=== PATIENT | female | born 1960 | race Caucasian/White ===

== ENCOUNTER → 2017-07-07 14:22 | Outpatient (CLI) | payer OTHER, SELFPAY ==
[2017-07-07 16:11] LABS: Anion Gap 10 (5-15); BUN 8 mg/dL (7-18); BUN/Creat Ratio 9.8 RATIO (10-20); Calcium,Total 9.1 mg/dL (8.5-10.1); Chloride 106 mmol/L (98-107); Cholesterol 286 mg/dL (200); Creatinine, Serum 0.82 mg/dL (0.55-1.02); EST Glomerular Filtration Rate 77 mL/min (>60); Est Glom Filt Rate - Afr Amer 93 mL/min (>60); Glucose 84 mg/dL (74-106); High Density Lipoprotein 93 mg/dL; Potassium 3.8 mmol/L (3.5-5.1); Sodium Level 142 mmol/L (136-145); Thyroid Stim Hormone (TSH) 0.92 uIU/mL (0.358-3.74); Triglycerides 83 mg/dL; Very Low Density Lipoprotein 17 mg/dL (5-40)
== END ==
PROVIDERS: Family Provider Family Medicine; PCP Family Medicine; Visit Provider Family Medicine
DX: Z00.00 Encounter for general adult medical examination without abnormal findings (principal)
CPT/HCPCS: 36415; 80048; 80061; 84443

== ENCOUNTER → 2017-07-10 08:47 | Outpatient (CLI) | payer OTHER, SELFPAY ==
[2017-07-10 10:25] LABS: Cholesterol 296 mg/dL (200); High Density Lipoprotein 102 mg/dL; Triglycerides 53 mg/dL; Very Low Density Lipoprotein 11 mg/dL (5-40)
== END ==
PROVIDERS: Family Provider Family Medicine; PCP Family Medicine; Visit Provider Family Medicine
DX: E78.5 Hyperlipidemia, unspecified (principal)
CPT/HCPCS: 36415; 80061

== ENCOUNTER → 2017-08-11 15:49 | Outpatient (CLI) | payer OTHER, SELFPAY ==
--- NOTE | 2017-08-11 15:49 | DT_ITS ---
This patient was seen during an EMR downtime August 04, 2017 - August 11, 2017. This patient may have a combination of paper and electronic documentation or all paper documentation. All documentation is viewable within the e-chart portion of [facility] for each patient visit.
--- NOTE | 2017-08-11 15:50 | BI_ITS ---
MAMMOGRAPHY - BILATERAL SCREENING REASON FOR EXAM: Female, 56 years old. Routine annual screening examination. PERTINENT HISTORY: NO FAM HX NO SX RT BUMP UNDER SKIN FROM SEBACEOUS CYST REMOVAL/LANCED 1984-MARKED TOLERATED MINIMAL COMPRESSION TECHNIQUE: Digital bilateral breast magdiel (3D mammographic acquisition) in the CC and MLO projections. 2-D mediolateral oblique (MLO) and craniocaudad (CC) views of both breasts were obtained. CAD: Full Field Digital Mammography with Computer Added Detection was performed. COMPARISON: None. FINDINGS: Breast Composition: The breasts are heterogeneously dense, which may obscure small masses. There are no dominant masses or suspicious calcifications. No other significant abnormalities are identified. BI/SCREENING MAMM (CAD), BILAT IMPRESSION: Stable bilateral screening mammogram. Yearly follow-up mammogram recommended. (A) ASSESSMENT CATEGORY: BIRADS Category 2: Benign. A letter regarding these results will be sent to the patient by the facility within 30 days. Approximately 10% of breast cancers are not detected by mammography. A normal mammogram should not delay biopsy of a clinically suspicious abnormality. [id number] Electronically Signed: Adan Trujillo MD at 12:19 EDT Tel , Service support ,
== END ==
PROVIDERS: Family Provider Family Medicine; PCP Family Medicine; Visit Provider Family Medicine
DX: Z12.31 Encounter for screening mammogram for malignant neoplasm of breast (principal)
CPT/HCPCS: 77063; 77067

== ENCOUNTER → 2017-09-26 08:57 | Outpatient (CLI) | payer OTHER, SELFPAY ==
[2017-09-26 11:45] LABS: AST(SGOT) 17 U/L (15-37); Alanine Aminotransfer ALT/SGPT 28 U/L (13-56); Alkaline Phosphatase 67 U/L (45-117); Bilirubin, Direct 0.12 mg/dL (0.00-0.30); Cholesterol 167 mg/dL (200); Globulin 3.3 g/dL (2.2-4.2); High Density Lipoprotein 65 mg/dL; Protein, Total 7.3 g/dL (6.4-8.2); Triglycerides 67 mg/dL; Very Low Density Lipoprotein 13 mg/dL (5-40)
== END ==
PROVIDERS: Family Provider Family Medicine; PCP Family Medicine; Visit Provider Family Medicine
DX: E78.5 Hyperlipidemia, unspecified (principal)
CPT/HCPCS: 36415; 80061; 80076

== ENCOUNTER → 2017-12-04 08:34 | Outpatient (CLI) | payer OTHER, SELFPAY ==
[2017-12-04 10:25] LABS: Cholesterol 242 mg/dL (200); High Density Lipoprotein 67 mg/dL; Triglycerides 85 mg/dL; Very Low Density Lipoprotein 17 mg/dL (5-40)
== END ==
PROVIDERS: Family Provider Family Medicine; PCP Family Medicine; Visit Provider Family Medicine
DX: E78.5 Hyperlipidemia, unspecified (principal)
CPT/HCPCS: 36415; 80061

== ENCOUNTER → 2018-06-24 | Outpatient (CLI) | payer OTHER, SELFPAY ==
--- NOTE | 2018-06-24 11:48 | RAD_ITS ---
STUDY: X-RAY - LEFT SHOULDER REASON FOR EXAM: Left shoulder pain, no specific injury. TECHNIQUE: 4 view(s) of the shoulder. COMPARISON: None. FINDINGS: Normal glenohumeral articulation. Normal acromioclavicular joint. Normal acromion. Normal humeral head and visualized proximal humerus. The soft tissue structures are unremarkable. Normal visualized pulmonary apex. RAD/Shoulder min 2 Views IMPRESSION: Normal x-ray examination of the left shoulder. Electronically Signed: Joaquin Dorantes MD at 12:59 EDT Tel , Service support ,
== END | disposition home or self-care (01) ==
LOC: MTRAD 11:45
PROVIDERS: Family Provider Family Medicine; PCP Family Medicine; Referring Provider Family Medicine; Visit Provider Family Medicine
DX: M25.512 Pain in left shoulder (principal)
CPT/HCPCS: 73030

== ENCOUNTER 2018-07-01 13:56 | Outpatient (RCR) | payer OTHER, SELFPAY | END 2018-07-01 19:00 | disposition home or self-care (01) | LOC: PT 13:56 | PROVIDERS: Family Provider Family Medicine; PCP Family Medicine; Visit Provider Family Medicine | DX: R69 Illness, unspecified (principal) ==

== ENCOUNTER → 2018-09-18 | Outpatient (CLI) | payer OTHER, SELFPAY ==
[2018-09-18 09:16] VITALS: BMI 20.2
--- NOTE | 2018-09-18 09:30 | BRBX_PTH ---
PATIENT: MANOLO KEMP LOC: PK U#:[id number] AGE/SX: 58/F ROOM: RE09/18/[address]: Dr. Fransisco Goddard MD : 1960 BED: DIS: 09/18/2018 SPEC #: [id number] RECD: 09/18/18 10:55 STATUS: KENNETH RELisa #: [id number] LENORA: 09/18/18 09:[address]: Fransisco Goddard DEPT: SURGICAL PATHOLOGY RECD BY: Conrad Vyas ENTERED: 09/18/18 12:21 SP TYPE: BREAST BX OTHR DR: Dr. Durga Reynoso MD Tissues: A - Right breast, NOS B - Abdominal wall, NOS C - Inguinal region, NOS Procedures: Surgery Specimen Level IV HEADER OPERATION: Not noted PRE-OP DIAGNOSIS: Not noted TISSUE SUBMITTED: A - Right superomedial breast, B - Left lateral abdominal wall, C - Right inguinal area MICROSCOPIC DIAGNOSIS A. Skin lesion of right superomedial breast, shave biopsy: Seborrheic keratosis. B. Left lateral abdominal wall skin lesion, shave biopsy: Seborrheic keratosis with actinic keratosis-like features. C. Skin lesion of right inguinal region, shave biopsy: Seborrheic keratosis. AM:suzi 09/21/18 MICROSCOPIC DESCRIPTION Slides are reviewed. GROSS DESCRIPTION A - Received in fixative is one container labeled with the patient's name and designated right superomedial breast. The specimen consists of a shave biopsy of webb-light brown skin measuring 0.7 x 0.3 x 0.1 cm. The specimen is inked and submitted entirely in one cassette. The specimen will be sectioned at the time of embedding. B - Received in fixative is one container labeled with the patient's name and designated left lateral abdominal wall. The specimen consists of a shave biopsy of webb-light brown skin measuring 1 x 0.3 x 0.1 cm. The specimen is inked and submitted entirely in one cassette. The specimen will be sectioned at the time of embedding. C - Received in fixative is one container labeled with the patient's name and designated right inguinal area. The specimen consists of a shave biopsy of webb-light brown skin measuring 1 x 0.4 x 0.1 cm. The specimen is inked and submitted entirely in one cassette. The specimen will be sectioned at the time of embedding. / SJ:suzi 09/18/18 TC:5 CPT: 72868 x3
== END | disposition home or self-care (01) ==
LOC: LABSPEC 11:00
PROVIDERS: Family Provider Family Medicine; PCP Family Medicine; Referring Provider Surgery; Visit Provider Surgery
DX: L82.1 Other seborrheic keratosis (principal)
CPT/HCPCS: 88305

== ENCOUNTER → 2018-09-30 | Outpatient (CLI) | payer OTHER, SELFPAY ==
[2018-07-16 14:27] VITALS: BMI 20.2
[2018-09-21 16:15] VITALS: BMI 20.2
--- NOTE | 2018-09-30 10:03 | BI_ITS ---
MAMMOGRAPHY - BILATERAL SCREENING REASON FOR EXAM: Female, 58 years old. Routine annual screening examination. PERTINENT HISTORY: Non-contributory. TECHNIQUE: Digital bilateral breast lia (3D mammographic acquisition) in the CC and MLO projections. 2-D mediolateral oblique (MLO) and craniocaudad (CC) views of both breasts were obtained. CAD: Full Field Digital Mammography with Computer Added Detection was performed. COMPARISON: Comparison is made with prior study of August 11, 2017 and August 07, 2016. FINDINGS: Breast Composition: There are scattered areas of fibroglandular density. There are no dominant masses or suspicious calcifications. No other significant abnormalities are identified. There has been no significant change since the prior study. BI/SCREEN MAMM (CAD) W/LIA BILAT IMPRESSION: Stable bilateral screening mammogram. Yearly follow-up mammogram recommended. (A) ASSESSMENT CATEGORY: BIRADS Category 1: Negative. A letter regarding these results will be sent to the patient by the facility within 30 days. Approximately 10% of breast cancers are not detected by mammography. A normal mammogram should not delay biopsy of a clinically suspicious abnormality. [id number] Electronically Signed: Joaquín Davis, at 11:22 EDT , Service support ,
--- NOTE | 2018-09-30 10:18 | BD_ITS ---
STUDY: DUAL ENERGY X-RAY ABSORPTIOMETRY / DXA REASON FOR EXAM: Female, 58 years old. The patient is postmenopausal. Loss of height. TECHNIQUE: Bone Mineral Density (BMD) measurements of lumbar spine and bilateral hips were obtained. COMPARISON: Comparison is made with prior study dated March 15, 2014. FINDINGS: Lumbar Spine (L1-L4): g/cm2 (0.829) / T-score (-3.1) / Z-score (-2.1) Findings are suggestive of osteoporosis with a high fracture risk. Left Femur Total: g/cm2 (0.793) / T-score (-1.7) / Z-score (-0.9) Left Femoral Neck: g/cm2 (0.746) / T-score (-2.1) / Z-score (-1.0) Right Femur Total: g/cm2 (0.761) / T-score (-2.0) / Z-score (-1.1) Right Femoral Neck: g/cm2 (0.709) / T-score (-2.4) / Z-score (-1.2) The T-Scores on the most recent prior examination were: Lumbar Spine (L1-L4): There has been worsening of bone density since the previous examination. Left Femur Total: which represents a worsening of 5.3%. Right Femur Total: which represents a worsening of 5%. BD/Dexa Bone Density Study IMPRESSION: The patient is considered osteoporotic as outlined below according to World Saqib Organization (WHO) criteria with a high fracture risk. There has been worsening of bone density since the previous examination. Reference Information: The T-score is the number of standard deviations above or below the standard which is normal for young adults at their peak bone mineral density. The World Health Organization (WHO) interprets the T-scores as follows: Above -1 Normal bone density Between -1 and -2.5 Osteopenia Equal to / or below -2.5 Osteoporosis As a practical clinical guideline, osteopenia may be graded as follows: Mild -1 through -1.5 Moderate -1.6 through -2.0 Severe -2.1 through -2.4 The Z-score is the number of standard deviations above or below age-matched controls. A Z-score of less than -1.5 would be considered abnormal. References: 1. NIH Osteoporosis and Related Bone Diseases http://www.osteo.org 2. International Society for Clinical Densitometry http://www.iscd.org 3. National Osteoporosis Foundation http://www.nof.org Electronically Signed: Joaquín Davis, at 8:28 EDT , Service support ,
== END | disposition home or self-care (01) ==
LOC: OPBD 10:02
PROVIDERS: Family Provider Family Medicine; PCP Family Medicine; Referring Provider Family Medicine; Visit Provider Family Medicine
DX: Z12.31 Encounter for screening mammogram for malignant neoplasm of breast (principal); Z78.0 Asymptomatic menopausal state
CPT/HCPCS: 77063; 77067; 77080

== ENCOUNTER → 2018-10-09 | Outpatient (CLI) | payer OTHER, SELFPAY ==
[2018-09-21 16:15] VITALS: BMI 20.2
== END | disposition home or self-care (01) ==
LOC: MFPLAB 13:59
PROVIDERS: Family Provider Family Medicine; PCP Family Medicine; Referring Provider Family Medicine; Visit Provider Family Medicine
DX: M81.0 Age-related osteoporosis without current pathological fracture (principal)
CPT/HCPCS: 36415; 82306

== ENCOUNTER → 2018-10-09 | Outpatient (CLI) | payer OTHER, SELFPAY ==
[2018-07-16 14:27] VITALS: BMI 20.2
[2018-09-21 16:15] VITALS: BMI 20.2
== END | disposition home or self-care (01) ==
LOC: SDC 09:03
PROVIDERS: Family Provider Family Medicine; PCP Family Medicine; Referring Provider Surgery; Visit Provider Surgery
DX: Z00.00 Encounter for general adult medical examination without abnormal findings (principal)

== ENCOUNTER → 2018-12-28 10:45 | Outpatient (CLI) | payer OTHER, SELFPAY ==
[2018-09-21 16:15] VITALS: BMI 20.2
[2018-12-28 12:43] LABS: Vitamin D,25 Hydroxy 74.8 ng/mL (29.95-100.01)
[2018-12-28 12:51] LABS: AST(SGOT) 19 U/L (15-37); Alanine Aminotransfer ALT/SGPT 27 U/L (13-56); Cholesterol 174 mg/dL (200); High Density Lipoprotein 72 mg/dL; Triglycerides 89 mg/dL; Very Low Density Lipoprotein 18 mg/dL (5-40)
== END ==
PROVIDERS: Family Provider Family Medicine; PCP Family Medicine; Visit Provider Family Medicine
DX: E78.5 Hyperlipidemia, unspecified (principal); M81.0 Age-related osteoporosis without current pathological fracture
CPT/HCPCS: 36415; 80061; 82306; 84450; 84460

== ENCOUNTER → 2019-10-04 10:11 | Outpatient (CLI) | payer OTHER, SELFPAY ==
[2019-03-12 13:01] VITALS: BMI 20.2
--- NOTE | 2019-10-04 10:14 | BI_ITS ---
MAMMOGRAPHY - BILATERAL SCREENING REASON FOR EXAM: Female, 59 years old. Routine annual screening examination. PERTINENT HISTORY: Non-contributory. History of prior right intramedullary sebaceous cyst removal. TECHNIQUE: Digital bilateral breast lia (3D mammographic acquisition) in the CC and MLO projections. 2-D mediolateral oblique (MLO) and craniocaudad (CC) views of both breasts were obtained. CAD: Full Field Digital Mammography with Computer Added Detection was performed. COMPARISON: Comparison is made with prior examination dated 09/30/2018 and 08/11/2017. FINDINGS: Breast Composition: There are scattered areas of fibroglandular density. There are no dominant masses or suspicious calcifications. No other significant abnormalities are identified. There has been no significant change since the prior study. BI/SCREEN MAMM (CAD) W/LIA BILAT IMPRESSION: Stable bilateral screening mammogram. Yearly follow-up mammogram recommended. (A) ASSESSMENT CATEGORY: BIRADS Category 1: Negative. A letter regarding these results will be sent to the patient by the facility within 30 days. Approximately 10% of breast cancers are not detected by mammography. A normal mammogram should not delay biopsy of a clinically suspicious abnormality. [id number] Electronically Signed: Joaquín Davis, at 10:59 EDT , Service support ,
== END ==
PROVIDERS: PCP Family Medicine; Referring Provider Family Medicine; Visit Provider Family Medicine
DX: Z12.31 Encounter for screening mammogram for malignant neoplasm of breast (principal)
CPT/HCPCS: 77063; 77067

== ENCOUNTER → 2020-01-04 15:17 | Outpatient (CLI) | payer OTHER, SELFPAY ==
[2019-03-12 13:01] VITALS: BMI 20.2
[2020-01-04 18:06] LABS: AST(SGOT) 16 U/L (15-37); Alanine Aminotransfer ALT/SGPT 27 U/L (13-56); Cholesterol 169 mg/dL (200); High Density Lipoprotein 69 mg/dL; Thyroid Stim Hormone (TSH) 1.22 uIU/mL (0.358-3.74); Triglycerides 77 mg/dL; Very Low Density Lipoprotein 15 mg/dL (5-40)
== END ==
PROVIDERS: PCP Family Medicine; Referring Provider Family Medicine; Visit Provider Family Medicine
DX: E78.5 Hyperlipidemia, unspecified (principal); F31.9 Bipolar disorder, unspecified
CPT/HCPCS: 36415; 80061; 84443; 84450; 84460

== ENCOUNTER → 2020-08-10 | Outpatient (CLI) | payer OTHER, SELFPAY ==
--- NOTE | 2020-08-10 | IMM_PTH ---
PATIENT: MANOLO KEMP LOC: PK U#:[id number] AGE/SX: 59/F ROOM: RE08/10/[address]: Dr. Fransisco Goddard MD : 1960 BED: DIS: 08/10/2020 SPEC #: [id number] RECD: 08/14/20 11:53 STATUS: SOUIlene REQ #: [id number] LENORA: 08/10/20 00:[address]: Fransisco Goddard DEPT: IMMUNOHISTOCHEMISTRY RECD BY: Isela Nguyen ENTERED: 08/14/20 11:54 SP TYPE: IMMUNO OTHR DR: Dr. Kiley Fountain MD Tissues: A - Abdominal wall, NOS Procedures: Pankeratin (add) MELAN-A (add) S100 (initial) PHYSICIAN & INSTITUTION [place] [id number] SPECIMEN INFORMATION: Tissue Source: A ? Right lateral abdominal wall, shave biopsy Clinical Info: Enlarging lesions, history of actinic keratosis Specimen Number: [id number] CPT code: 84075, 93616 x2 METHODOLOGY: Deparaffinized sections of prefer/formalin-fixed tissue or PAP/DQ stained slides are incubated with monoclonal/polyclonal antibodies/oligonucleotide probes. Localization is made via biotin free immunoperoxidase method. Appropriate controls are performed and reacted as expected. Results on target cell population are indicated in the following table: RESULTS: ANTIBODY / CLONE RESULT Block A S-100 (4C4.9) positive Melan A (A103) positive AE1-3 (AE1/AE3/PCK26) negative These tests were developed and their performance characteristics determined by [facility]. They may not have been cleared or approved by the U.S. Food and Drug Administration. The FDA has determined that such clearance or approval is not necessary. The above immunohistochemical/dualISH markers are ordered and reviewed by the Pathologist. INTERPRETATION: A. Right lateral abdominal wall, shave biopsy: Consistent with compound nevus. Verrucoid keratosis. AM:suzi 08/15/2020
--- NOTE | 2020-08-10 | LES_PTH ---
PATIENT: MANOLO KEMP LOC: PK U#:[id number] AGE/SX: 59/F ROOM: RE08/10/[address]: Dr. Fransisco Goddard MD : 1960 BED: DIS: 08/10/2020 SPEC #: [id number] RECD: 08/10/20 16:06 STATUS: KENNETH RELisa #: [id number] LENORA: 08/10/20 00:[address]: Fransisco Goddard DEPT: SURGICAL PATHOLOGY RECD BY: Iwona Mccrary ENTERED: 08/11/20 07:53 SP TYPE: Lesion OTHR DR: Dr. Kiley Fountain MD Tissues: A - Skin of abdomen, NOS B - Skin of abdomen, NOS C - Skin of abdomen, NOS D - Skin of chest E - Skin of chest Procedures: Surgery Specimen Level IV HEADER OPERATION: Shave excision lesions PRE-OP DIAGNOSIS: Enlarging lesions, history of actinic keratosis TISSUE SUBMITTED: A - Right lateral abdominal wall/flank (cluster x2), B - Right lateral abdominal wall/ anterior, C - Right upper abdominal wall (cluster x2), D - Left upper medial chest wall, E - Right upper medial chest wall MICROSCOPIC DIAGNOSIS A. Skin lesions of right lateral abdomen, shave biopsies: Verrucoid keratosis. Compound nevus with mild architectural atypia. See comment. B. Skin lesion of right lateral abdomen, shave biopsy: Pigmented seborrheic keratosis, mildly inflamed. C. Skin lesion of right upper abdomen, shave biopsy: Seborrheic keratosis. D. Skin lesion of left upper medial chest wall, shave biopsy: Actinic keratosis. Solar elastosis. E. Skin lesion of right upper medial chest wall, shave biopsy: Actinic keratosis. Solar elastosis. AM:suzi 08/15/2020 COMMENT A. Immunohistochemistry ([id number]) supports the above diagnosis. Case has been reviewed in consultation with Dr. Davis who concurs with the above diagnosis. IDC:SJ MICROSCOPIC DESCRIPTION Slides are reviewed. GROSS DESCRIPTION A - Received in fixative is one container labeled with the patient's name and designated right lateral abdomen. The specimen consists of two irregular fragments of webb tissue that in aggregate measure 0.6 x 0.5 x 0.1 cm. The specimen is totally submitted in one cassette. B - Received in fixative is one container labeled with the patient's name and designated right lateral abdomen anterior. The specimen consists of two irregular fragments of webb tissue that in aggregate measure 0.5 x 0.2 x 0.1 cm. The specimen is totally submitted in one cassette. C - Received in fixative is one container labeled with the patient's name and designated right upper abdomen wall. The specimen consists of two irregular fragments of light webb soft tissue that in aggregate measure 0.6 x 0.6 x 0.1 cm. The specimen is totally submitted in one cassette. D - Received in fixative is one container labeled with the patient's name and designated left upper medial chest wall. The specimen consists of one irregular fragment of light webb soft tissue that measures 0.5 x 0.5 x 0.1 cm. The specimen is totally submitted in one cassette. E - Received in fixative is one container labeled with the patient's name and designated right upper medial chest wall. The specimen consists of one irregular fragment of light webb soft tissue that measures 0.6 x 0.3 x 0.1 cm. The specimen is totally submitted in one cassette. / AM:suzi 08/11/20 TC:? CPT: 80288 x5
[2020-08-10 13:33] VITALS: BMI 19.2
== END | disposition home or self-care (01) ==
LOC: LABSPEC 16:16
PROVIDERS: PCP Family Medicine; Visit Provider Surgery
DX: L98.9 Disorder of the skin and subcutaneous tissue, unspecified (principal)
CPT/HCPCS: 88305; 88341; 88342

== ENCOUNTER → 2020-10-06 10:51 | Outpatient (CLI) | payer OTHER, SELFPAY ==
[2020-08-17 14:04] VITALS: BMI 19.2
--- NOTE | 2020-10-06 10:53 | BI_ITS ---
MAMMOGRAPHY - BILATERAL SCREENING REASON FOR EXAM: Female, 60 years old. Routine annual screening examination. PERTINENT HISTORY: Screening TECHNIQUE: Digital bilateral breast lia (3D mammographic acquisition) in the CC and MLO projections. 2-D mediolateral oblique (MLO) and craniocaudad (CC) views of both breasts were obtained. CAD: Full Field Digital Mammography with Computer Added Detection was performed. COMPARISON: Previous mammogram from 10/04/2019 FINDINGS: Breast Composition: Fatty The dominant mass is noted deep to the inframammary fold and the right breast at 6 o''clock position. This is the site of a previous palpable density noted previously which at that time was felt to be a sebaceous cyst which have been lanced. At this time the. The lesion appears to be 30-50% larger than noted previously. Again this could be an enlarging sebaceous cyst, however, underlying carcinoma cannot be completely excluded. For this reason a targeted right breast ultrasound is recommended for additional evaluation left breast appears to be normal. No other significant abnormalities are identified. BI/SCRN MAMM (CAD)W/LIA BILAT IMPRESSION: A masslike lesion is noted in the deep right breast deep to the inframammary fold which has increased in size and additional ultrasound imaging is recommended for further evaluation. ASSESSMENT CATEGORY: BIRADS Category 0: Incomplete. Need additional imaging evaluation. A letter regarding these results will be sent to the patient by the facility within 30 days. BR0A Approximately 10% of breast cancers are not detected by mammography. A normal mammogram should not delay biopsy of a clinically suspicious abnormality. [id number] Electronically Signed: Johnnie Coronado DO at 13:51 EDT Tel , Service support ,
== END ==
PROVIDERS: PCP Family Medicine; Referring Provider Family Medicine; Visit Provider Family Medicine
DX: Z12.31 Encounter for screening mammogram for malignant neoplasm of breast (principal)
CPT/HCPCS: 77063; 77067

== ENCOUNTER → 2020-10-10 10:48 | Outpatient (CLI) | payer OTHER, SELFPAY ==
[2020-08-17 14:04] VITALS: BMI 19.2
--- NOTE | 2020-10-10 10:50 | US_ITS ---
STUDY: ULTRASOUND BREAST - RIGHT REASON FOR EXAM: Female, 60 years old. Palpable lump in the right breast. TECHNIQUE: Axial and longitudinal images of the RIGHT breast were performed with a high resolution ultrasound transducer. # OF IMAGES: 20 COMPARISON: Comparison is made with prior mammogram dated 10/06/2020. FINDINGS: RIGHT Breast: The palpable abnormality corresponds to a 1.1 cm x 1.4 cm x 0.6 cm hypoechoic well-defined solid nodule just deep to the subcutaneous tissue. Patient has a history of prior sebaceous cyst at that site. Biopsy is recommended. US/Breast Limited Unilateral IMPRESSION: The palpable abnormality corresponds to a 1.1 cm x 1.4 cm x 0.6 cm hypoechoic well-defined solid nodule just deep to the subcutaneous tissue at the 6 o''clock position of the breast that is 7 cm from nipple. Biopsy recommended. ASSESSMENT CATEGORY: BIRADS Category 4: Suspicious - Biopsy Should Be Considered. A letter regarding these results will be sent to the patient by the facility within 30 days. Electronically Signed: Joaquín Davis MD at 11:33 EDT , Service support ,
== END ==
PROVIDERS: PCP Family Medicine; Visit Provider Family Medicine
DX: N63.10 Unspecified lump in the right breast, unspecified quadrant (principal)
CPT/HCPCS: 76642

== ENCOUNTER → 2020-11-01 | Outpatient (CLI) | payer OTHER, SELFPAY ==
--- NOTE | 2020-11-01 13:00 | CYST_PTH ---
PATIENT: MANOLO KEMP LOC: PK U#:[id number] AGE/SX: 60/F ROOM: RE11/01/[address]: Dr. Rajiv Eduardo MD : 1960 BED: DIS: 11/01/2020 SPEC #: [id number] RECD: 11/02/20 06:40 STATUS: KENNETH LOUISE #: [id number] LENORA: 11/01/20 13:[address]: Rajiv Eudardo DEPT: SURGICAL PATHOLOGY RECD BY: Iwona Mccrary ENTERED: 11/03/20 08:00 SP TYPE: Cyst OTHR DR: Dr. Kiley Fountain MD Tissues: CYST Procedures: Surgery Specimen Level III HEADER OPERATION: Excision right breast cyst PRE-OP DIAGNOSIS: Right breast cyst TISSUE SUBMITTED: Right breast cyst MICROSCOPIC DIAGNOSIS Right breast cyst, excision: Epidermal inclusion cyst. DAVION:suzi 11/03/2020 MICROSCOPIC DESCRIPTION Slides are reviewed. GROSS DESCRIPTION Received in fixative is one container labeled with the patient's name and designated right breast cyst. The specimen consists of a piece of skin with underlying tissue. The skin piece measures 1 x 0.5 cm and the underlying tissue measures 1 x 0.6 x 0.5 cm. The specimen is inked, bisected and reveals a cyst filled with webb-white cheesy material. The entire specimen is submitted in one cassette. / SJ:suzi 11/02/20 TC:5 [facility] [place]: [id number]
== END | disposition home or self-care (01) ==
LOC: LABSPEC 11-03 06:10
PROVIDERS: PCP Family Medicine; Referring Provider Surgery; Visit Provider Surgery
DX: N60.01 Solitary cyst of right breast (principal)
CPT/HCPCS: 88304

== ENCOUNTER 2021-05-28 14:03 | Outpatient (CLI) | payer BC, SELFPAY ==
[2021-05-28 15:44] LABS: Hemoglobin A1c 5.2 % (3.8-5.6)
[2021-05-28 15:48] LABS: AST(SGOT) 17 U/L (15-37); Alanine Aminotransfer ALT/SGPT 22 U/L (13-56); Cholesterol 213 mg/dL (200); High Density Lipoprotein 56 mg/dL; Triglycerides 129 mg/dL; Very Low Density Lipoprotein 26 mg/dL (5-40)
== END 2021-05-28 23:59 | disposition home or self-care (01) ==
LOC: MFPLAB 14:05
PROVIDERS: PCP Family Medicine; Visit Provider Family Medicine
DX: E78.5 Hyperlipidemia, unspecified (principal); F31.9 Bipolar disorder, unspecified
CPT/HCPCS: 36415; 80061; 83036; 84450; 84460

== ENCOUNTER → 2021-07-31 | Outpatient (CLI) | payer BC, SELFPAY ==
--- NOTE | 2021-07-31 10:28 | BD_ITS ---
STUDY: DUAL ENERGY X-RAY ABSORPTIOMETRY / DXA REASON FOR EXAM: Female, 60 years old. Z780. The patient is postmenopausal. TECHNIQUE: Bone Mineral Density (BMD) measurements of lumbar spine and bilateral hips were obtained. COMPARISON: Comparison is made with prior study dated 09/30/2018. FINDINGS: Lumbar Spine (L1-L4): g/cm2 (0.716) / T-score (-3.0) / Z-score (-1.5) Findings are suggestive of osteoporosis with a high fracture risk. Left Femur Total: g/cm2 (0.724) / T-score (-1.8) / Z-score (-0.8) Left Femoral Neck: g/cm2 (0.569) / T-score (-2.5) / Z-score (-1.2) Right Femur Total: g/cm2 (0.716) / T-score (-1.8) / Z-score (-0.9) Right Femoral Neck: g/cm2 (0.589) / T-score (-2.3) / Z-score (-1.0) The T-Scores on the most recent prior examination were: Lumbar Spine (L1-L4): There has been worsening of bone density since the previous examination. Left Femur Total: which represents a worsening of 1.3%. Right Femur Total: which represents an improvement of 2%. BD/Dexa Bone Density Study IMPRESSION: The patient is considered osteoporotic as outlined below according to World Saqib Organization (WHO) criteria with a high fracture risk. There has been worsening of bone density since the previous examination. Reference Information: The T-score is the number of standard deviations above or below the standard which is normal for young adults at their peak bone mineral density. The World Health Organization (WHO) interprets the T-scores as follows: Above -1 Normal bone density Between -1 and -2.5 Osteopenia Equal to / or below -2.5 Osteoporosis As a practical clinical guideline, osteopenia may be graded as follows: Mild -1 through -1.5 Moderate -1.6 through -2.0 Severe -2.1 through -2.4 The Z-score is the number of standard deviations above or below age-matched controls. A Z-score of less than -1.5 would be considered abnormal. References: 1. NIH Osteoporosis and Related Bone Diseases www osteo.org 2. International Society for Clinical Densitometry www iscd.org 3. National Osteoporosis Foundation www nof.org Electronically Signed: Joaquín Davis MD at 12:44 EDT ,
== END | disposition home or self-care (01) ==
LOC: OPBD 10:24
PROVIDERS: PCP Family Medicine; Referring Provider Family Medicine; Visit Provider Family Medicine
DX: Z78.0 Asymptomatic menopausal state (principal)
CPT/HCPCS: 77080

== ENCOUNTER → 2021-09-21 | Outpatient (CLI) | payer BC, SELFPAY ==
--- NOTE | 2021-09-21 10:57 | RAD_ITS ---
EXAM: XR LUMBOSACRAL SPINE, 4 OR 5 VIEWS CLINICAL INDICATION: LUMBAR DYSFUNCTION TECHNIQUE: Frontal, lateral and bilateral oblique views of the lumbar spine. This report was created using [email or web address] report generation technology. COMPARISON: None. FINDINGS: VERTEBRAE: Unremarkable. Preserved vertebral body height. No fracture. No spondylolisthesis. Preservation of the normal lumbar lordosis. No significant facet arthropathy. DISC SPACES: There is disc space narrowing at L4-5. GASTROINTESTINAL TRACT: Unremarkable as visualized. Included bowel gas pattern is non-obstructive. RAD/L/S Spine Min 4 Views IMPRESSION: Degenerative changes lower lumbar spine with disc space narrowing. There are no osseous abnormalities. Electronically Signed: Fritz Graham MD at 2:58 EDT ,
== END | disposition home or self-care (01) ==
PROVIDERS: PCP Family Medicine; Referring Provider Family Medicine; Visit Provider Family Medicine
DX: M51.86 Other intervertebral disc disorders, lumbar region (principal)
CPT/HCPCS: 72110

== ENCOUNTER → 2021-10-04 | Outpatient (CLI) | payer BC, SELFPAY ==
[2021-10-04 15:07] LABS: Bacteria 0 SEEN /hpf (None Seen); Mucous, Urine 0 SEEN /hpf (<or=2+); Red Blood Cells-Urine 0 SEEN /hpf (0-5); Squamous Epithelial Cells - UA 0 SEEN /hpf (5-10)
[2021-10-04 15:13] LABS: Color, Urine Yellow (Yellow); Glucose, Dipstick Normal (Normal); Ketone-Dipstick Negative (Negative); Leukocyte Esterase-Dipstick 500 /ul (Negative); Nitrite-Dipstick Negative (Negative); Occult Blood-Urine 150 /ul (Negative); Protein-Dipstick Negative (Negative); Urine Bilirubin Dipstick Negative (Negative); Urine Clarity Clear (Clear); Urine Urobilinogen Normal (Normal)
[2021-10-04 15:21] LABS: White Blood Cells 0-5 SEEN /hpf (0-5)
== END | disposition home or self-care (01) ==
LOC: LABSPEC 14:03
PROVIDERS: Family Medicine; PCP Family Medicine; Visit Provider Family Medicine
DX: N39.0 Urinary tract infection, site not specified (principal)
CPT/HCPCS: 81001; 87077; 87086; 87088

== ENCOUNTER 2021-10-24 11:30 | Outpatient (RCR) | payer BC, SELFPAY ==
--- NOTE | 2021-10-03 10:54 | HP.PTEVAL ---
Patient's Visit Information MANOLO KEMP is a 61 year old F referred to Physical Therapy by Dr. Kiley Fountain MD with a diagnosis of LUMBAR STRAIN. Date of Evaluation: 10/03/21 Physical Therapist: Raquel Blackmon PT, Cert MDT - Visit Plan Frequency: 2x /Week Duration: 4-6 Weeks Plan: LOW BACK US X 6. POSTURE CORRECTION/STRENGTHENING, INSTRUCTION IN APPROPRIATE BODY MECHANICS AND ACTIVITY MODIFICATIONS. DLS STARTING WITH A NEUTRAL SPINE PROGRESSING ROM TOLERATED. INDIRA LE ROM, STRETCHING AND STRENGTHENING. HEP INSTRUCTION. 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 [facility]. DRIVES TO [place] EVERY WINTER AND PAINFUL DRIVING NOW. Disability: NO. Present symptoms: INDIRA LE SX'S RIGHT > LEFT. LOW BACK TIGHTNESS RIGHT > LEFT. RIGHT THIGH, LEG AND FOOT PAIN. LLE SX'S TOO BUT MUCH LESS THAN RIGHT. NOT SURE ABOUT NUMBNESS OR TINGLING. Present since: JUNE 2021. Pain Scale: WORST 7/10, LEAST 0/10. Currently: 0/10. Commenced as a result of: LIFTING A RESIDENT WITH ANOTHER AIDE THAT DIDN'T LIFT VERY GOOD AND HAS HAD PAIN EVER SINCE. DID NOT FILE WORKERS COMPENSATION AND DOES NOT PLAN TO. Symptoms at onset: PAIN DOWN RIGHT LEG TO HEEL. Worse: SITTING, DRIVING*. Better: STRETCHING THE HAMSTRINGS. Disturbed sleep: NO. Previous history/Previous treatment: HAS SEEN A CHIROPRACTOR ON AND OFF OVER ABOUT 5 YEARS FOR LOW BACK AND SCIATICA AND HASN'T HELPED SCIATICA. HAS GONE TO CHIROPRACTOR MORE OFTEN THE LAST FEW YEARS SINCE WORKING AN AIDE. NO BACK SURGERY. NO NICCI'S. NO PHYSICAL THERAPY. Treatment this episode: JUST CHIROPRACOTR. Coughing/sneezing/straining: NEGATIVE. Gait: NORMAL. Bowel or Bladder Dysfunction: NO. Accidents: NO. Unexplained weight loss: NO. Imaging: RECENT LUMBAR X-RAY SHOWING MINOR ARTHRITIS PER PATIENT REPORT. EXAM: XR LUMBOSACRAL SPINE, 4 OR 5 VIEWS. CLINICAL INDICATION: LUMBAR DYSFUNCTION. TECHNIQUE: Frontal, lateral and bilateral oblique views of the lumbar. spine. This report was created using [employer]. technology. COMPARISON: None. FINDINGS: VERTEBRAE: Unremarkable. Preserved vertebral body height. No fracture. No spondylolisthesis. Preservation of the normal lumbar lordosis. No. significant facet arthropathy. DISC SPACES: There is disc space narrowing at L4-5. GASTROINTESTINAL TRACT: Unremarkable as visualized. Included bowel gas. pattern is non-obstructive. RAD/L/S Spine Min 4 Views. IMPRESSION: . Degenerative changes lower lumbar spine with disc space narrowing. There. are no osseous abnormalities. . Electronically Signed: Fritz Graham MD. at 2:58 EDT. ,. PMH/Recent major surgery: OSTEOPOROSIS. HIGH CHOLESTEROL, BIPOLAR. OTHER: WALKS 2-3 MILES DAILY. ALSO DOES PUSHUPS AND SOME STRECHES DAILY. LIKES TO DO YOGA. - Objective Sitting/Standing Posture: POOR. NORMAL LUMBAR LORDOSIS BUT FH AND RSH'S. NO RELEVANT LATERAL SHIFT. Active Correction of posture: NE. Other Observations: INDEP AND TRANSFERS. Sensory deficit: INDIRA LE LIGHT TOUCH SENSATION IS GROSSLY INTACT AND SYMMETRICAL. ROM deficit: MILD INDIRA HS AND GASTROC SOLEUS TIGHTNESS. Motor deficit: INDIRA LE'S 5/6 WITH MMT'ING EXCEPT HIPS 4/5. Dural Signs: NEGATIVE INDIRA LE'S. Lumbar mvmt loss: flex - MIN. ext - MOD. R SG - MIN. L SG - MIN. PATIENT DENIES INCREASED LB OR LE SX'S. Core strength: POOR TO FAIR. TREATMENT: NEUROMUSCULAR REEDUCATION - RETRAINING OF MVMT AND POSTURE FOR SITTING, LYING AND STANDING ACTIVITIES. - Balance/Special Test Scores Oswestry Low Back Score: 5 - Goals Goal 1:: DECREASE C/O LOW BACK AND INDIRA LE SX'S Goal Time Frame: 4-6 Weeks Goal 2:: IMPROVE SITTING AND ADL FUNCTION Goal Time Frame: 4-6 Weeks Goal 3:: INSTRUCT IN PROPHYLAXIS Goal Time Frame: 4-6 Weeks - Anticipated Interventions Patient/Client Instruction: Educate patient on: Condition, Plan of Care, Risk Factors For the Purpose of:: To improve self management Therapeutic Exercise to Include: Strength training, Body mechanics, Postural training, Flexibilty training, Neuromotor development, In an aquatic setting, Dynamic Lumbar Stabilization For the Purpose of:: To decrease pain, To improve muscle performance and motor function, To increase tolerance to activity/condition/position, To improve ability of physical actions for home/community/work/leisure Cryotherapy (ice pack, ice massage): Yes Thermo therapy (hot pack): Yes Ultrasound (thermal/non thermal): Yes For the Purpose of:: To decrease pain, To improve nutrient delivery to tissue Thank you for the opportunity to evaluate your patient. For Medicare and Medicare HMO plans, please review the plan of care and approve it. It will need to be FAXED BACK to us at [phone] for Medicare purposes. For Medicare only, by signing this I certify the plan of care. Please let me know if there are questions or concerns regarding this plan of care. Physician Signature: Date:
--- NOTE | 2021-10-24 12:56 | HP.PTDCSUM ---
It has been my pleasure to treat MANOLO KEMP referred by Dr. Kiley Fountain MD, with the diagnosis of LUMBAR STRAIN for a total of 7 visit(s). Discharge Date: 10/24/21 Please see the following information for a summary of their discharge status. Subjective: Pt reports that she is doing wonderful with no pain. She reports that she had a little bit of pain on Friday and did her exercises to relieve it and that helped. Pt reports that she is sitting with good posture at home. Pt reports that if she is on a hard bench she will get some pain and it did not last too long. % Improvement: 100 Objective/Function: Pt verbally states that she is good with her HEP and advancement. Goal 1:: DECREASE C/O LOW BACK AND INDIRA LE SX'S Goal Progress: Goal Met Goal 2:: IMPROVE SITTING AND ADL FUNCTION Goal Progress: Goal Met Goal 3:: INSTRUCT IN PROPHYLAXIS Goal Progress: Goal Met Plan: DC PT to HEP Discharge Comments: DC PT to HEP If there are questions or concerns regarding this patient's physical therapy, please feel free to call me at [phone]. Thank you for the referral of this patient. Sincerely, Gilda Fitzgerald, MPT Balance/Gait/Functional tests - Balance/Special Test Scores Oswestry Low Back Score: 0
== END 2021-10-24 19:00 | disposition home or self-care (01) ==
LOC: PT 11:30
PROVIDERS: PCP Family Medicine; Referring Provider Family Medicine; Visit Provider Family Medicine
DX: S39.012D Strain of muscle, fascia and tendon of lower back, subsequent encounter (principal)
CPT/HCPCS: 97035; 97112; 97162; 97530

== ENCOUNTER → 2022-04-09 | Outpatient (CLI) | payer BC, SELFPAY ==
[2022-04-09 13:27] LABS: AST(SGOT) 14 U/L (15-37); Alanine Aminotransfer ALT/SGPT 20 U/L (13-56); Cholesterol 219 mg/dL (200); High Density Lipoprotein 68 mg/dL; Triglycerides 170 mg/dL; Very Low Density Lipoprotein 34 mg/dL (5-40)
== END | disposition home or self-care (01) ==
LOC: MFPLAB 10:50
PROVIDERS: PCP Family Medicine; Referring Provider Family Medicine; Visit Provider Family Medicine
DX: E78.5 Hyperlipidemia, unspecified (principal)
CPT/HCPCS: 36415; 80061; 84450; 84460

== ENCOUNTER → 2022-09-17 | Outpatient (CLI) | payer BC, SELFPAY ==
--- NOTE | 2022-09-17 12:40 | BI_ITS ---
MAMMOGRAPHY - BILATERAL SCREENING 3-D TOMOSYNTHESIS REASON FOR EXAM: Female, 62 years old. Routine screening PERTINENT HISTORY: No significant family history. TECHNIQUE: 2-D mammograms and 3-D Tomosynthesis of the breast (s) were performed. CAD was performed. COMPARISON: 10/06/2020 FINDINGS: The breast composition is composed of scattered fibroglandular density. Scattered benign calcifications are seen. No dense spiculated masses or suspicious microcalcifications are identified. No architectural distortion is identified. There is no skin thickening or retraction. There has been no significant change since the prior study. BI/SCRN MAMM (CAD)W/LIA BILAT IMPRESSION: No mammographic signs of malignancy. Routine yearly mammograms recommended. ASSESSMENT CATEGORY: BIRADS Category 1: Negative. A letter regarding these results will be sent to the patient by the facility within 30 days. FOLLOW UP RECOMMENDATION: Yearly follow up mammogram recommended. (A) Approximately 10% of breast cancers are not detected by mammography. A normal mammogram should not delay biopsy of a clinically suspicious abnormality. Electronically Signed: Homer Wolff MD at 13:57 EDT ,
== END | disposition home or self-care (01) ==
LOC: OPBI 12:38
PROVIDERS: PCP Family Medicine; Referring Provider Family Medicine; Visit Provider Family Medicine
DX: Z12.31 Encounter for screening mammogram for malignant neoplasm of breast (principal)
CPT/HCPCS: 77063; 77067

== ENCOUNTER → 2023-08-07 | Outpatient (CLI) | payer BC, SELFPAY ==
--- NOTE | 2023-08-07 15:46 | BD_ITS ---
STUDY: DUAL ENERGY X-RAY ABSORPTIOMETRY / DXA REASON FOR EXAM: Female, 62 years old. [id number] TECHNIQUE: Bone Mineral Density (BMD) measurements of lumbar spine and bilateral hips were obtained. COMPARISON: Comparison is made with prior study July 31, 2021. FINDINGS: Lumbar Spine (L1-L4): g/cm2 (0.708) / T-score (-3.1) / Z-score (-1.5) Findings are suggestive of osteoporosis with a high fracture risk. Left Femur Total: g/cm2 (0.745) / T-score (-1.6) / Z-score (-0.5) Left Femoral Neck: g/cm2 (0.574) / T-score (-2.5) / Z-score (-1.1) Right Femur Total: g/cm2 (0.712) / T-score (-1.9) / Z-score (-0.8) Right Femoral Neck: g/cm2 (0.572) / T-score (2.5) / Z-score (-1.1) The T-Scores on the most recent prior examination were: Lumbar Spine (L1-L4): There has been worsening of bone density since the previous examination. Left Femur Total: which represents an improvement of 3%. Right Femur Total: which represents a worsening of 0.6%. BD/Dexa Bone Density Study IMPRESSION: The patient is considered osteoporotic as outlined below according to World Saqib Organization (WHO) criteria with a high fracture risk. There has been worsening of bone density since the previous examination. Reference Information: The T-score is the number of standard deviations above or below the standard which is normal for young adults at their peak bone mineral density. The World Health Organization (WHO) interprets the T-scores as follows: Above -1 Normal bone density Between -1 and -2.5 Osteopenia Equal to / or below -2.5 Osteoporosis As a practical clinical guideline, osteopenia may be graded as follows: Mild -1 through -1.5 Moderate -1.6 through -2.0 Severe -2.1 through -2.4 The Z-score is the number of standard deviations above or below age-matched controls. A Z-score of less than -1.5 would be considered abnormal. References: 1. NIH Osteoporosis and Related Bone Diseases www osteo.org 2. International Society for Clinical Densitometry www iscd.org 3. National Osteoporosis Foundation www nof.org Electronically Signed: Joaquín Davis MD at 9:57 EDT ,
== END | disposition home or self-care (01) ==
PROVIDERS: PCP Family Medicine; Referring Provider Family Medicine; Visit Provider Family Medicine
DX: N95.9 Unspecified menopausal and perimenopausal disorder (principal)
CPT/HCPCS: 77080

== ENCOUNTER → 2023-09-23 | Outpatient (CLI) | payer BC, SELFPAY ==
--- NOTE | 2023-09-23 08:27 | BI_ITS ---
MAMMOGRAPHY - BILATERAL SCREENING REASON FOR EXAM: Female, 63 years old. Routine annual screening examination. PERTINENT HISTORY: Non-contributory. TECHNIQUE: Digital bilateral breast lia (3D mammographic acquisition) in the CC and MLO projections. 2-D mediolateral oblique (MLO) and craniocaudad (CC) views of both breasts were obtained. CAD: Full Field Digital Mammography with Computer Added Detection was performed. COMPARISON: Comparison is made with prior study dated September 17, 2022 and October 06, 2020. FINDINGS: Breast Composition: There are scattered areas of fibroglandular density. There are no dominant masses or suspicious calcifications. No other significant abnormalities are identified. There has been no significant change since the prior study. BI/SCRN MAMM (CAD)W/LIA BILAT IMPRESSION: Stable bilateral screening mammogram. Yearly follow-up mammogram recommended. (A) ASSESSMENT CATEGORY: BIRADS Category 1: Negative. A letter regarding these results will be sent to the patient by the facility within 30 days. Approximately 10% of breast cancers are not detected by mammography. A normal mammogram should not delay biopsy of a clinically suspicious abnormality. [id number] Electronically Signed: Joaquín Davis MD at 8:58 EDT ,
== END | disposition home or self-care (01) ==
LOC: OPBI 08:26
PROVIDERS: PCP Family Medicine; Referring Provider Family Medicine; Visit Provider Family Medicine
DX: Z12.31 Encounter for screening mammogram for malignant neoplasm of breast (principal)
CPT/HCPCS: 77063; 77067

== ENCOUNTER → 2023-12-16 | Outpatient (CLI) | payer BC, SELFPAY ==
[2023-12-16 18:16] LABS: AST(SGOT) 19 U/L (15-37); Alanine Aminotransfer ALT/SGPT 22 U/L (13-56); Cholesterol 182 mg/dL (200); High Density Lipoprotein 64 mg/dL; Triglycerides 63 mg/dL; Very Low Density Lipoprotein 13 mg/dL (5-40)
== END | disposition home or self-care (01) ==
LOC: MFPLAB 14:36
PROVIDERS: PCP Family Medicine; Visit Provider Family Medicine
DX: E78.5 Hyperlipidemia, unspecified (principal)
CPT/HCPCS: 36415; 80061; 84450; 84460

== ENCOUNTER → 2024-07-13 | Outpatient (CLI) | payer BC, SELFPAY ==
--- NOTE | 2024-07-13 14:50 | RAD_ITS ---
PROCEDURE: KNEE 3 VIEWS 07/13/2024 REASON FOR EXAM: LEFT KNEE TECHNIQUE: 3 view(s) of the left knee COMPARISON: None available FINDINGS: No fracture, dislocation or joint effusion. The joint spaces appear within limits. No osseous lesion identified. The soft tissues appear within limits. RAD/Knee 3 Views IMPRESSION: Study appears within limits. Reading Location: [id number]
== END | disposition home or self-care (01) ==
LOC: MTRAD 14:48
PROVIDERS: PCP Family Medicine
DX: M25.569 Pain in unspecified knee (principal)
CPT/HCPCS: 73562

== ENCOUNTER → 2024-09-27 | Outpatient (CLI) | payer BC, SELFPAY ==
--- NOTE | 2024-09-27 14:31 | BI_ITS ---
EXAM: SCRN MAMM (CAD)W/LIA BILAT DATE: 09/27/2024 CLINICAL HISTORY: F, Age 64 y/o , ANNUAL No family history. History of prior sebaceous cyst removal in the right breast. TECHNIQUE: SCRN MAMM (CAD)W/LIA BILAT COMPARISON: Prior exam(s) dated September 23, 2023.. FINDINGS: TISSUE DENSITY: There are scattered areas of fibroglandular density. Bilateral Breast Mammographic Findings: No significant masses, calcifications or other abnormalities are identified. No suspicious masses, areas of developing architectural distortion, or suspicious calcifications. There has been no significant interval change. BI/SCRN MAMM (CAD)W/LIA BILAT IMPRESSION: Stable examination. OVERALL FINAL ASSESSMENT BI-RADS 1: NEGATIVE. RECOMMENDATION: Routine annual follow-up in 1 Year A letter with findings and recommendations will be mailed to the patient. Reading Location: [id number]
== END | disposition home or self-care (01) ==
LOC: OPBI 14:21
PROVIDERS: PCP Family Medicine; Referring Provider Family Medicine; Visit Provider Family Medicine
DX: Z12.31 Encounter for screening mammogram for malignant neoplasm of breast (principal)
CPT/HCPCS: 77063; 77067

== ENCOUNTER 2024-11-29 13:41 | Outpatient (CLI) | payer BC, SELFPAY ==
--- NOTE | 2024-11-29 13:47 | RAD_ITS ---
PROCEDURE: FOOT MIN 3 VIEWS 11/29/2024 REASON FOR EXAM: PAIN TECHNIQUE: Procedure Code: RADFO Modality: DX Procedure: FOOT MIN 3 VIEWS Three views of the right foot COMPARISON: None FINDINGS: There is no fracture or dislocation identified. There is no focal soft tissue swelling or radiopaque foreign body identified. Mineralization is normal. RAD/Foot min 3 Views IMPRESSION: No fracture or dislocation is identified. Reading Location: [id number]
== END 2024-11-29 23:59 | disposition home or self-care (01) ==
LOC: MTRAD 13:41
PROVIDERS: PCP Family Medicine
DX: M79.671 Pain in right foot (principal)
CPT/HCPCS: 73630